=== PATIENT | male | born 1990 | race Caucasian/White ===

== ENCOUNTER 2023-08-20 18:39 | Emergency (ER) | payer OTHER ==
[2023-08-20] MEDS ORDERED: Dexameth. Sod Phosp. 10 MG/ML (CHEMO USE ONLY) ONE (19:58)
== END 2023-08-20 21:15 | disposition home or self-care (01) ==
LOC: ERS 18:39
DX: J45.901 Unspecified asthma with (acute) exacerbation (principal); R51.9 Headache, unspecified; F17.210 Nicotine dependence, cigarettes, uncomplicated; I10 Essential (primary) hypertension; Z79.82 Long term (current) use of aspirin
CPT/HCPCS: 71045; J1100; J7611

== ENCOUNTER 2023-12-05 08:54 | Emergency (ER) | payer OTHER ==
[2023-12-05] MEDS ORDERED: Ketorolac Tromethamine 30 MG (1 mL) VIAL ONE (09:41)
[2023-12-05] MEDS ORDERED: Ondansetron PF 4 MG/2 ML Vial ONE (09:41)
[2023-12-05 09:43] LABS: #Eosinphils 0.1 thou/uL (0.0-0.7); #Monocytes 0.8 thou/uL (0.11-0.59); #Neutrophils 3.7 thou/uL (1.40-6.50); %Basophils 0.6 % (0.0-1.0); %Eosinophils 1.9 % (0.0-10.0); %Lymphocytes 24.5 % (21.0-51.0); %Monocytes 12.6 % (0.0-10.0); %Neutrophils 60.2 % (42.0-75.0); Hematocrit 44.7 % (42.0-52.0); Hemoglobin 15.2 g/dL (14.0-18.0); Mean Corpuscular Hemoglobin 29.2 pg (27.0-31.0); Platelet Count 210 10x3/uL (130-400); RBC Distribution Width 12.6 % (11.5-14.5); White Blood Cell (WBC) Count 6.2 10x3/uL (4.8-10.8)
[2023-12-05 10:44] LABS: ALT (SGPT) 30 U/L (8-55); AST (SGOT) 18 U/L (5-34); Albumin 4.2 g/dL (3.5-5.0); Alkaline Phosphatase 74 U/L (40-110); Anion Gap 12 mmol/L (10-20); BUN (Urea Nitrogen) 15 mg/dL (8.9-20.6); Bilirubin, Total 0.4 mg/dL (0.2-1.2); Calc. Creatinine Clearance 0 mL/min (70-130); Calcium 8.5 mg/dL (7.8-10.44); Carbon Dioxide 25 mmol/L (22-29); Chloride 103 mmol/L (98-107); Estimated GFR 116; Globulin 2.6 g/dL (2.4-3.5); Glucose 97 mg/dL (70-105); Lipase 13 U/L (8-78); Potassium 3.7 mmol/L (3.5-5.1); Protein, Total 6.8 g/dL (6.0-8.3); Sodium 136 mmol/L (136-145)
[2023-12-05 11:05] LABS: Bilirubin Negative (Negative); Blood, Urine Negative (Negative); CAUTI Indications for Culture Dysuria,urgency,freq; Clarity Clear (Clear); Glucose, Urine (Dipstick) Normal (Negative); Ketone, Urine Negative (Negative); Leukocyte Negative Leu/uL (Negative); Nitrite Negative (Negative); Protein, Urine (Dipstick) 20 mg/dL (Neg-Trace); RBC/HPF 0-3 HPF (0-3); Specific Gravity, Urine 1.028 (1.002-1.036); Squamous Epithelial None Seen HPF (0-3); Urobilinogen Normal mg/dL (Less than 2); WBC/HPF 0-3 HPF (0-3)
[2023-12-05 11:09] LABS: Bacteria/HPF 1+ HPF (None Seen)
[2023-12-05 11:10] LABS: Urine Culture Reflex No No
== END 2023-12-05 14:58 | disposition home or self-care (01) ==
LOC: ERS 08:54
DX: H66.92 Otitis media, unspecified, left ear (principal); R19.7 Diarrhea, unspecified; R11.2 Nausea with vomiting, unspecified; I10 Essential (primary) hypertension; F17.210 Nicotine dependence, cigarettes, uncomplicated; Z79.899 Other long term (current) drug therapy
CPT/HCPCS: 36415; 80053; 81001; 83690; 83735; 85025; 96361; 96374; 96375; J1885; J2405